=== PATIENT | female | born 1945 | race Caucasian/White ===

== ENCOUNTER 2020-09-09 16:39 | Emergency (ER) | payer MEDICARE, OTHER ==
[~2020-09-09] VITALS: Ht 152.4 cm; Wt 65.8 kg
[~2020-09-09 16:39] MED LIST: CHONDROITIN SULFATE PO; COENZYME Q10200 M2 PO; CYANOCOBALAMIN PO; GLUCOSAMINE PO; LUTIN PO; PREMARIN PO; RITALIN PO; VIT D3; VITAMIN B COMPLEX PO; Z MAGNESIUM PO; Z.0.CALTRATE 600 +1 PO; Z.0.FISH OIL500 MG PO; Z.0.SYNTHROID25 MCG PO; Z.0.VITAMIN C500 MG PO
== END 2020-09-09 21:03 | disposition home or self-care (01) ==
LOC: ER 17:41
DX: S60.811A Abrasion of right wrist, initial encounter (principal); S00.03XA Contusion of scalp, initial encounter; S40.011A Contusion of right shoulder, initial encounter; S80.01XA Contusion of right knee, initial encounter; I73.00 Raynaud's syndrome without gangrene; G47.419 Narcolepsy without cataplexy; E03.9 Hypothyroidism, unspecified; W01.198A Fall on same level from slipping, tripping and stumbling with subsequent striking against other object, initial encounter; Y92.009 Unspecified place in unspecified non-institutional (private) residence as the place of occurrence of the external cause; Z88.8 Allergy status to other drugs, medicaments and biological substances; Z91.048 Other nonmedicinal substance allergy status
CPT/HCPCS: 70450; 72125; 72170; 99283

== ENCOUNTER → 2020-11-09 | Outpatient (CLI) | payer MEDICARE, OTHER | LOC: US 09:32 | PROVIDERS: ATTEND Family Medicine | DX: E03.9 Hypothyroidism, unspecified (principal); E04.2 Nontoxic multinodular goiter | CPT/HCPCS: 76536 ==

== ENCOUNTER 2022-11-28 06:52 | Emergency (ER) | payer MEDICARE, OTHER ==
[~2022-11-28] VITALS: Ht 149.9 cm; Wt 68.0 kg
== END 2022-11-28 07:40 | disposition home or self-care (01) ==
LOC: FSED 07:01
DX: M79.642 Pain in left hand (principal); R20.2 Paresthesia of skin; I73.00 Raynaud's syndrome without gangrene; G47.419 Narcolepsy without cataplexy
CPT/HCPCS: 99282